=== PATIENT | female | born 1955 | race Caucasian/White ===

== ENCOUNTER → 2018-03-04 | Outpatient (CLI) | payer BC ==
[~2018-03-04] VITALS: Ht 157.5 cm; Wt 60.2 kg
[~2018-03-04] MED LIST: COMBIRESP IH; EFFEXOR 75M75 MG/TAB PO; FENTANYL 50MCG TD; FOSAMAX 70MG TA70 MG PO; NORCO 325 MG-7.1 TAB PO; NORFLEX 10100 MG/TAB PO; NORVASC 10MG10 MG PO; RT ADVAIR 228 DISKUS IH; RT SPIRIVA18 MCG IH
[2018-03-04 09:16] VITALS: BP 140/94; PULSE 86
[2018-03-04 10:40] VITALS: BP 136/89; PULSE 86
[2018-03-04 10:45] VITALS: BP 140/81; PULSE 84
[2018-03-04 10:50] VITALS: BP 136/82; PULSE 84
[2018-03-04 11:00] VITALS: BP 135/80; PULSE 85
== END ==
LOC: COL.RAD 08:45
DX: R91.1 Solitary pulmonary nodule (principal)

== ENCOUNTER → 2020-10-09 | Outpatient (CLI) | payer OTHER ==
--- NOTE | 2020-10-09 11:50 | NUR ---
PATIENTS TEST NEEDED TO BE RESCHEDULED THEY HAVE TAKEN ALL OF THEIR INHALERS AND HAD CAFFINE 30 MIN BEFORE TEST. [facility] CALLED AND NOTIFIED.
== END ==
LOC: COL.PUL 11:20
DX: M54.5 Low back pain (principal)

== ENCOUNTER → 2020-11-05 | Outpatient (CLI) | payer OTHER | LOC: COL.PUL 07:56 | DX: M54.9 Dorsalgia, unspecified (principal); G89.29 Other chronic pain; J44.9 Chronic obstructive pulmonary disease, unspecified ==